=== PATIENT | male | born 2000 | race Asian ===

== ENCOUNTER 2019-01-17 11:36 | Emergency (ER) | payer OTHER ==
[~2019-01-17] VITALS: Ht 167.6 cm; Wt 48.0 kg
[2019-01-17 11:47] VITALS: BP 120/85
--- NOTE | 2019-01-17 12:01 | NUR ---
PT STATES HE THINKS HE "HIT HIS HEAD" PT WITH ROOMMATES WHO STATE HE IS HAVING PROBLEMS REMEMBERING THINGS. THIS WAS NOTICED APPROX 11AM THIS AM
--- NOTE | 2019-01-17 13:55 | NUR ---
REPORT TAKEN FROM POONAM LAMB. PT GETTING DRESSED NOW.
== END 2019-01-17 13:58 | disposition home or self-care (01) ==
LOC: ED 13:17
DX: S00.03XA Contusion of scalp, initial encounter (principal); X58.XXXA Exposure to other specified factors, initial encounter; Y93.89 Activity, other specified; Y92.89 Other specified places as the place of occurrence of the external cause; Y99.8 Other external cause status
CPT/HCPCS: 70450; 99284